=== PATIENT | male | born 1980 | race Caucasian/White ===

== ENCOUNTER 2018-08-22 01:19 | Emergency (ER) | payer SELFPAY ==
[2018-08-22 01:19] VITALS: BMI 27.1
[2018-08-22] MEDS ORDERED: Sodium Chloride 0.9% 1,000 ML ONE (01:30)
[2018-08-22 01:31] VITALS: RESP 18
[2018-08-22] MEDS ORDERED: Sodium Chloride 0.9% 1,000 ML IV ONE (01:34)
[2018-08-22 01:42] LABS: BASO # 0.1 K/uL (0.0-0.2); BASO % 1.1 % (0.0-2.0); EOS # 0.3 K/uL (0.0-0.7); EOS % 2.7 % (0.0-4.0); HEMOGLOBIN 16.6 g/dL (12.0-18.0); LYMPH # 2.7 K/uL (1.0-4.3); LYMPH % 24.8 % (20.0-40.0); MEAN CELL VOLUME 86.4 fL (80.0-94.0); MEAN CORPUSCULAR HEMOGLOBIN 29.2 pg (27.0-31.0); MEAN CORPUSCULAR HGB CONC 33.8 g/dL (33.0-37.0); MEAN PLATELET VOLUME 8.9 fL (7.2-11.7); MONO # 0.8 K/uL (0.0-0.8); MONO % 7.3 % (0.0-10.0); NEUT % 64.1 % (50.0-75.0); RBC 5.68 Mil/uL (4.40-5.90); RED CELL DISTRIBUTION WIDTH 13.2 % (11.5-14.5); WHITE BLOOD COUNT 10.9 K/uL (4.8-10.8)
[2018-08-22 02:47] LABS: ALB/GLOB RATIO 1.4 (1.0-2.1); ALBUMIN 3.6 g/dL (3.5-5.0); ALT/SGPT 42 U/L (21-72); AST/SGOT 20 U/L (17-59); BLOOD UREA NITROGEN 17 mg/dL (9-20); CALCIUM 8.2 mg/dl (8.6-10.4); GFR NON-AFRICAN AMERICAN > 60
--- NOTE | 2018-08-22 03:05 | C.PDOC ---
History Of Present Illness 38 y/o male presents to the ED complaining of intermittent right-sided epigastric and RUQ pain for the past 10 hours. The patient reports experiencing his symptoms after eating food from a deli. He states he experienced similar symptoms 8 months ago which resulted in a hospital visit in [place]. The patient denies any nausea, vomiting, chest pain, SOB, fever or chills. He reports having a normal bowel movement earlier today. Time Seen by Provider: 08/22/18 01:53 Chief Complaint (Nursing): Abdominal Pain History Per: Patient History/Exam Limitations: no limitations Onset/Duration Of Symptoms: Hrs Current Symptoms Are (Timing): Still Present Context: Food Location Of Pain/Discomfort: RUQ, Epigastric (Right ) Quality Of Discomfort: "Pain" Associated Symptoms: denies: Fever, Chills, Nausea, Vomiting Last Bowel Movement: Today Recent travel outside of the [place]: No Past Medical History Reviewed: Historical Data, Nursing Documentation, Vital Signs Vital Signs: Last Vital Signs Temp 98.3 F 08/22/18 01:24 Pulse 64 08/22/18 01:24 Resp 18 08/22/18 01:24 BP 154/100 H 08/22/18 01:24 Pulse Ox 98 08/22/18 01:24 - Medical History PMH: Denies: HIV, Chronic Kidney Disease Other PMH: Colitis Other Surgeries: Orthopedic surgery - [facility] Procedures EXCISION OF LARGE INTESTINE, ENDO, DIAGN (09/02/17) EXCISION OF RECTUM, ENDO, DIAGN (09/02/17) Family History: States: Unknown Family Hx - Social History Hx Alcohol Use: No Hx Substance Use: No - Immunization History Hx Tetanus Toxoid Vaccination: No Hx Influenza Vaccination: No Hx Pneumococcal Vaccination: No Review Of Systems Constitutional: Negative for: Fever, Chills Cardiovascular: Negative for: Chest Pain Respiratory: Negative for: Shortness of Breath Gastrointestinal: Positive for: Abdominal Pain. Negative for: Nausea, Vomiting, Diarrhea Physical Exam - Physical Exam Appears: Non-toxic, No Acute Distress Skin: Warm, Dry Head: Atraumatic, Normacephalic Eye(s): bilateral: PERRL, EOMI Neck: Supple Chest: No Tenderness Cardiovascular: Rhythm Regular, No Murmur Respiratory: No Decreased Breath Sounds, No Rales, No Rhonchi, No Wheezing, Other (CTA b/l) Gastrointestinal/Abdominal: Soft, Tenderness (mild tenderness to right epigastric and RUQ), No Distention, No Guarding, No Rebound, Other (+ mary's sign) Back: No CVA Tenderness Extremity: No Calf Tenderness, No Swelling Neurological/Psych: Oriented x3, Normal Speech, Normal Cognition ED Course And Treatment - Laboratory Results Result Diagrams: 08/22/18 01:39 08/22/18 02:38 O2 Sat by Pulse Oximetry: 98 (RA) Pulse Ox Interpretation: Normal Medical Decision Making Medical Decision Making: PT WITH EPIGASTRIC AND RUQ PAIN S/P EATING LUNCH EARLIER TODAY. WILL CHECK LABS AND GEt RUQ US 0414 pt with normal labs, no relief with pepcid. toradol given and pt feels much better. us shows fatty liver. no gallstones. us results discussed with patient and . will d/c pt with pepcid, simethicone, dietary changes and pmd and gi f/u outpatient. on re-exam, abdomen soft, nd, nt. \\ Disposition - Disposition Referrals: [facility] at [facility] [Outside] Joao Chandler MD [Staff Provider] - Disposition: HOME/ ROUTINE Disposition Time: 05:03 Condition: IMPROVED Additional Instructions: Please eat low fat diet. Take pepcid and simethicone as prescribed. Please follow up in medical clinic a and with Dr Chandler (gastroenterology). Return to ER for any worse abdominal pin. fever. vomiting or other concerns. 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 - Scribe Statement The provider has reviewed the documentation as recorded by the Scribdory Merino All medical record entries made by the Scribe were at my direction and personally dictated by me. I have reviewed the chart and agree that the record accurately reflects my personal performance of the history, physical exam, medical decision making, and the department course for this patient. I have also personally directed, reviewed, and agree with the discharge instructions and disposition.
[2018-08-22 04:34] VITALS: BP 134/74; PULSE 69; TEMP 97.8
[2018-08-22 04:58] VITALS: O2SAT 98
== END 2018-08-22 05:20 | disposition home or self-care (01) ==
LOC: C.ER 01:19 → SUPCPDRO 01:19 → C.ER 05:20
DX: K29.70 Gastritis, unspecified, without bleeding (principal); K76.0 Fatty (change of) liver, not elsewhere classified
CPT/HCPCS: 76705; 80053; 83690; 85025; 96361; 96374; 96375; 99285; J1885; J7030

== ENCOUNTER 2018-09-23 11:14 | Emergency (ER) | payer OTHER ==
[2018-09-23 11:14] VITALS: BMI 27.1
[2018-09-23] MEDS ORDERED: Aluminum Hydroxide/Magnesium Hydroxide Susp (30 mL) PO STA (12:20)
--- NOTE | 2018-09-23 12:20 | C.PDOC ---
History Of Present Illness 38 y/o male presents to the ED complaining of recurrent epigastric/right upper quadrant pain since last night. Patient reports PMHx of gastritis. He was seen here on 08/22 for the same complaint and had negative ultrasound at that time. States he has been trying to decrease his spicy/fried food intake. Patient was taking Pepcid and Simethicone with minimal relief. Otherwise he denies any dysuria, hematuria, diarrhea, fever, or chills. <Ruth Hanson - Last Filed: 09/23/18 13:03> History Per: Patient History/Exam Limitations: no limitations Onset/Duration Of Symptoms: Days (x2), Intermittent Episodes Current Symptoms Are (Timing): Still Present Location Of Pain/Discomfort: RUQ, Epigastric Quality Of Discomfort: "Pain" Exacerbating Factors: Food <Ruth Hanson - Last Filed: 09/23/18 13:03> <Kristie Richards - Last Filed: 09/23/18 14:01> Time Seen by Provider: 09/23/18 12:04 Chief Complaint (Nursing): Abdominal Pain Past Medical History Reviewed: Historical Data, Nursing Documentation, Vital Signs Vital Signs: Last Vital Signs Temp 98.6 F 09/23/18 11:21 Pulse 54 L 09/23/18 11:21 Resp 18 09/23/18 11:21 BP 143/96 H 09/23/18 11:21 Pulse Ox 96 09/23/18 11:21 - Medical History PMH: Gastritis Denies: HIV, Chronic Kidney Disease - [facility] Procedures EXCISION OF LARGE INTESTINE, ENDO, DIAGN (09/02/17) EXCISION OF RECTUM, ENDO, DIAGN (09/02/17) Family History: States: Unknown Family Hx - Social History Hx Alcohol Use: No Hx Substance Use: No - Immunization History Hx Tetanus Toxoid Vaccination: No Hx Influenza Vaccination: No Hx Pneumococcal Vaccination: No <Ruth Hanson - Last Filed: 09/23/18 13:03> Vital Signs: Last Vital Signs Temp 98.6 F 09/23/18 11:21 Pulse 55 L 09/23/18 13:20 Resp 16 09/23/18 13:20 BP 130/80 09/23/18 13:20 Pulse Ox 100 09/23/18 13:20 - [facility] Procedures EXCISION OF LARGE INTESTINE, ENDO, DIAGN (09/02/17) EXCISION OF RECTUM, ENDO, DIAGN (09/02/17) <Kristie Richards - Last Filed: 09/23/18 14:01> Review Of Systems Constitutional: Negative for: Fever, Chills, Sweats Cardiovascular: Negative for: Chest Pain, Palpitations Respiratory: Negative for: Shortness of Breath Gastrointestinal: Positive for: Abdominal Pain. Negative for: Nausea, Vomiting, Diarrhea, Hematochezia Genitourinary: Negative for: Dysuria, Hematuria Musculoskeletal: Negative for: Back Pain Neurological: Negative for: Weakness, Dizziness <Ruth Hanson - Last Filed: 09/23/18 13:03> Physical Exam - Physical Exam Appears: Non-toxic, In Acute Distress (moderate painful distress) Skin: Warm, Dry Head: Atraumatic, Normacephalic Eye(s): bilateral: Normal Inspection, PERRL, EOMI Oral Mucosa: Moist Neck: Normal ROM Chest: Symmetrical Cardiovascular: Rhythm Regular, No Murmur Respiratory: Normal Breath Sounds, No Accessory Muscle Use, Other (NARD) Gastrointestinal/Abdominal: Soft, Tenderness (to the epigastrium and RUQ), No Distention, No Guarding, No Rebound Back: No CVA Tenderness, No Vertebral Tenderness Extremity: Bilateral: Atraumatic, Normal Color And Temperature, Normal ROM Pulses: Left Dorsalis Pedis: Normal, Right Dorsalis Pedis: Normal Neurological/Psych: Oriented x3, Normal Speech <Ruth Hanson - Last Filed: 09/23/18 13:03> ED Course And Treatment - Laboratory Results Result Diagrams: 09/23/18 12:31 09/23/18 12:31 O2 Sat by Pulse Oximetry: 96 (RA) Pulse Ox Interpretation: Normal <Ruth Hanson - Last Filed: 09/23/18 13:03> - Laboratory Results Result Diagrams: 09/23/18 12:31 09/23/18 12:31 <Kristie Richards - Last Filed: 09/23/18 14:01> Progress - Data Reviewed Data Reviewed: Lab, Diagnostic imaging, Old records <Ruth Hanson - Last Filed: 09/23/18 13:03> Medical Decision Making Medical Decision Making: Initial Plan: --Labs --Pepcid 20 mg IVP --Zofran 4 mg IVP --Protonix 40 mg IVP --Maalox plus 30ml PO --Morphine 2 mg IVP --Viscous lido 2% PO Patient endorsed to Dr. Richards as of 1:00pm, pending reassessment and dispo. <Ruth Hanson - Last Filed: 09/23/18 13:03> Disposition - Disposition Disposition Time: 13:00 <Ruth Hanson - Last Filed: 09/23/18 13:03> Counseled Patient/Family Regarding: Studies Performed, Diagnosis, Need For Followup, Rx Given - Disposition Disposition Time: 14:00 <Kristie Richards - Last Filed: 09/23/18 14:01> - Disposition Referrals: Joao Chandler MD [Staff Provider] - [facility] [Outside] Disposition: HOME/ ROUTINE Condition: STABLE Additional Instructions: FOLLOW UP WITH DIELECTRIC MACHINE OPERATOR WITHIN 1 WEEK USE PROTONIX EVERY DAY, AND USE PEPCID NEEDED RETURN TO ER IF SYMPTOMS WORSEN Prescriptions: Famotidine [Pepcid] 20 mg PO BID PRN #15 tab PRN Reason: abdominal Pantoprazole [Protonix EC Tab] 20 mg PO DAILY #30 ect Instructions: Gastritis Forms: [employer] (Yi) Print Language: IRISH - Clinical Impression Clinical Impression: Abdominal pain, Gastritis - Scribe Statement The provider has reviewed the documentation as recorded by the Scribe (Kathleen Yin) Provider Attestation: All medical record entries made by the Scribe were at my direction and personally dictated by me. I have reviewed the chart and agree that the record accurately reflects my personal performance of the history, physical exam, medical decision making, and the department course for this patient. I have also personally directed, reviewed, and agree with the discharge instructions and disposition. <Ruth Hanson - Last Filed: 09/23/18 13:03> Physician Patient Turnover Patient Signed Over To: Kristie Richards (pending reeval and dispo) <Ruth Hanson - Last Filed: 09/23/18 13:03>
[2018-09-23 12:34] LABS: BASO # 0.1 K/uL (0.0-0.2); BASO % 0.7 % (0.0-2.0); EOS # 0.1 K/uL (0.0-0.7); EOS % 1.3 % (0.0-4.0); HEMOGLOBIN 17.3 g/dL (12.0-18.0); LYMPH # 1.6 K/uL (1.0-4.3); LYMPH % 17.5 % (20.0-40.0); MEAN CORPUSCULAR HGB CONC 33.7 g/dL (33.0-37.0); MEAN PLATELET VOLUME 9.1 fL (7.2-11.7); MONO # 0.7 K/uL (0.0-0.8); MONO % 7.1 % (0.0-10.0); NEUT # 6.7 K/uL (1.8-7.0); NEUT % 73.4 % (50.0-75.0); NRBC % 0.1 % (0.0-2.0); RBC 5.97 Mil/uL (4.40-5.90); RED CELL DISTRIBUTION WIDTH 13.5 % (11.5-14.5); WHITE BLOOD COUNT 9.2 K/uL (4.8-10.8)
[2018-09-23] MEDS ORDERED: Aluminum Hydroxide/Magnesium Hydroxide Susp (30 mL) ONE (12:41)
[2018-09-23 12:46] LABS: ALB/GLOB RATIO 1.5 (1.0-2.1); ALBUMIN 4.4 g/dL (3.5-5.0); ALT/SGPT 44 U/L (21-72); AST/SGOT 30 U/L (17-59); BLOOD UREA NITROGEN 22 mg/dL (9-20); CALCIUM 8.8 mg/dl (8.6-10.4); GFR NON-AFRICAN AMERICAN > 60; LIPASE 88 U/L (23-300)
[2018-09-23] MEDS ORDERED: Morphine 4 MG/ML VIAL ONE (13:09)
[2018-09-23 14:25] VITALS: BP 148/97; PULSE 50; RESP 18; TEMP 97.4; O2SAT 99
== END 2018-09-23 14:31 | disposition home or self-care (01) ==
LOC: C.ER 11:14
DX: K29.70 Gastritis, unspecified, without bleeding (principal); R10.13 Epigastric pain
CPT/HCPCS: 80053; 83690; 85025; 96374; 96375; 99285; C9113; J2270; J2405